=== PATIENT | female | born 1960 | race Two or more races ===

== ENCOUNTER 2019-09-03 08:19 | Outpatient (CLI) | payer OTHER | END 2019-09-03 11:03 | disposition home or self-care (01) | LOC: NUCLEAR 08:19 | DX: R19.09 Other intra-abdominal and pelvic swelling, mass and lump (principal); R91.1 Solitary pulmonary nodule | CPT/HCPCS: 78816; A9552 ==

== ENCOUNTER 2021-01-10 07:44 | Outpatient (CLI) | payer OTHER | END 2021-01-10 07:48 | disposition home or self-care (01) | LOC: NUCLEAR 07:44 | PROVIDERS: ATTEND Internal Medicine Hematology & Oncology | DX: C34.12 Malignant neoplasm of upper lobe, left bronchus or lung (principal) | CPT/HCPCS: 78816; A9552 ==

== ENCOUNTER 2021-12-27 07:18 | Outpatient (CLI) | payer OTHER | END 2021-12-27 07:21 | disposition home or self-care (01) | LOC: NUCLEAR 07:18 | PROVIDERS: ATTEND Internal Medicine Hematology & Oncology | DX: C34.12 Malignant neoplasm of upper lobe, left bronchus or lung (principal) | CPT/HCPCS: 78816; A9552 ==

== ENCOUNTER → 2022-07-14 | Outpatient (CLI) | payer OTHER | END | disposition home or self-care (01) | LOC: NUCLEAR 07-13 08:00 | DX: C34.12 Malignant neoplasm of upper lobe, left bronchus or lung (principal) | CPT/HCPCS: 78816; A9552 ==

== ENCOUNTER 2023-09-20 07:39 | Outpatient (CLI) | payer OTHER | END 2023-09-20 07:40 | disposition home or self-care (01) | LOC: NUCLEAR 07:39 | PROVIDERS: ATTEND Internal Medicine Hematology & Oncology | DX: C34.12 Malignant neoplasm of upper lobe, left bronchus or lung (principal) ==

== ENCOUNTER 2025-05-06 07:34 | Outpatient (CLI) | payer OTHER | END 2025-05-06 07:35 | disposition home or self-care (01) | LOC: NUCLEAR 07:34 | PROVIDERS: ATTEND Internal Medicine Hematology & Oncology | DX: C83.07 Small cell B-cell lymphoma, spleen (principal) ==